=== PATIENT | male | born 1960 | race Caucasian/White ===

== ENCOUNTER 2018-10-12 08:17 | Emergency (ER) | payer BC ==
--- NOTE | 2018-10-12 10:45 | ED ---
Lower Extremity - HPI Summary HPI Summary: 58 yo WM p/w right calf pain x 2-3 days associated with right ankle swelling and mild right knee pain. Denies injury or overuse, sits at computer alot. - History of Current Complaint Chief Complaint: UCLowerExtremity Stated Complaint: PAIN SWELLING CALF OF LEG Time Seen by Provider: 10/12/18 08:28 Hx Obtained From: Patient Onset of Pain: Days Onset/Duration: Days Severity Initially: Moderate Severity Currently: Moderate Pain Intensity: 1 Timing: Constant Character Of Pain: Dull, Aching Aggravating Factor(s): Standing, Ambulation Alleviating Factor(s): Nothing Able to Bear Weight: Yes - Allergies/Home Medications Allergies/Adverse Reactions: Allergies Allergy/AdvReac Type Severity Reaction Status Date / Time doxycycline Allergy Rash Verified 10/12/18 08:28 tetracycline Allergy anaph Verified 10/12/18 08:28 PMH/Surg Hx/FS Hx/Imm Hx Previously Healthy: Yes Endocrine/Hematology History: Reports: Hx Thyroid Disease - not on meds Denies: Hx Diabetes, Hx Anemia GI History: Denies: Hx Jaundice Infectious Disease History: No Infectious Disease History: Denies: Traveled Outside the [place] in Last 30 Days - Social History Alcohol Use: Occasionally Substance Use Type: Reports: None Smoking Status (MU): Never Smoked Tobacco Have You Smoked in the Last Year: No Review of Systems Constitutional: Negative Positive: Fever Eyes: Negative ENT: Negative Cardiovascular: Negative Respiratory: Negative Gastrointestinal: Negative Genitourinary: Negative Musculoskeletal: Negative Skin: Negative Neurological: Negative Psychological: Normal All Other Systems Reviewed And Are Negative: Yes Physical Exam - Summary Physical Exam Summary: Vital Signs Reviewed: Yes Skin: Positive: Warm Head/Face: Positive: Normal Head/Face Inspection Eyes: Positive: Normal ENT: Positive: Normal ENT inspection Neck: Positive: Supple Respiratory/Lung Sounds: Positive: Clear to Auscultation Cardiovascular: Positive: Normal, RRR, S1, S2 Abdomen Description: Positive: Nontender Musculoskeletal: Positive: right calf tenderness- right upper medial- NVI, ROM in right knee and ankle intact, Neurological: Positive: Normal Psychiatric: Positive: Normal, Affect/Mood Appropriate Vital Signs On Initial Exam: Initial Vitals Temp Pulse Resp BP Pulse Ox 36.6 C 58 16 126/91 98 10/12/18 08:24 10/12/18 08:24 10/12/18 08:24 10/12/18 08:24 10/12/18 08:24 Diagnostics - Vital Signs Vital Signs Temp Pulse Resp BP Pulse Ox 10/12/18 08:24 36.6 C 58 16 126/91 98 - Laboratory Lab Statement: Any lab studies that have been ordered have been reviewed, and results considered in the medical decision making process. Lower Extremity Course/Dx - Course Assessment/Plan: RLE doppler neg for DVT but LARGE FLUID COLLECTION EXTENDING FROM THE POPLITEAL FOSSA INTO THE CALF POSSIBLY REPRESNTING A PARTIALLY RUPTURED JOSE'S CYST. IF PAIN, REDNESS AND SWELLING INCREASES TO A POINT WHERE IT IS EXTREMELY PAINFUL AND HARD- ADVISED TO GO TO ER- GO TO ORTHO FOR EVALUATION AND F/U - Diagnoses Provider Diagnoses: Ruptured Bakers cyst Discharge - Sign-Out/Discharge Documenting (check all that apply): Patient Departure All imaging exams completed and their final reports reviewed: Yes - Discharge Plan Condition: Stable Disposition: HOME Patient Education Materials: Bakers Cyst (ED) Referrals: Larry Luo DO [Primary Care Provider] - Additional Instructions: follow up with PCP or ortho if calf tenderness swelling becomes worse- red, tender and hot as we discussed - Billing Disposition and Condition Condition: STABLE Disposition: Home
[2018-10-12 11:13] VITALS: BP 136/89
== END 2018-10-12 11:06 | disposition home or self-care (01) ==
LOC: UCEAST 08:17
DX: M66.0 Rupture of popliteal cyst (principal); Z88.1 Allergy status to other antibiotic agents
CPT/HCPCS: 99201; G0463

== ENCOUNTER 2019-12-16 14:04 | Emergency (ER) | payer BC ==
--- OUTSIDE RECORDS SUMMARY | 2019-12-16 14:24 | XMS REPORT | Continuity of Care Document ---
:1960 External Reference #:[id number] Author Name Jules Garzon M.D. 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 Medicine Problems Description No Information Available Social History Type Date Description Comments Sex Unknown Tobacco Use Start: Unknown End: former occasional smoker last time he smoked was Unknown in Smoking Status Reviewed: 12/06/19 former occasional smoker last time he smoked was in Allergies, Adverse Reactions, Alerts Active Allergies Reaction Severity Comments Date NKDA 08/15/2019 Inactive Allergies Doxycycline facial numbness 11/30/2018 Tetracycline unknown 11/30/2018 Medications Active Medications SIG Qnty Indications Ordering Provider Date Triamcinolone Acetonide Larry Luo DO Noah 0.1% Cream Humira Pen Inject 40 MG Unknown 40mg/0.4ML PNKT Under The Skin Every Other Week Immunizations CPT Code Status Date Vaccine Reaction Lot # [id number] Given 09/05/2019 Influenza Virus Vaccine, Patient denies ever [id number] Quadrivalent, Split, having a serious Preservative Free reaction to eggs or egg products, ever having a serious reaction or other problem after getting influenza vaccination, ever being diagnosed with Zacoupi-Rsyoi-Lsawzdwg , possibility of being , fever or moderate/severe illness today, allergy to latex. Patient verifies "I have read or had explained to me the information about influenza and influenza vaccine. I have had a chance to ask questions that were answered to my satisfaction. I believe I understand the benefits and risks of influenza vaccine and ask that the vaccine be given to me." Patient tolerated injection w/ no immediate adverse effect. [id number] Given 09/05/2019 Pneumococcal Conjugate Pt reports no [id number] Vaccine 13 Valent For immediate adverse Intramuscular Use effects Vital Signs Date Vital Result Comment 12/06/2019 8:56am Height 72 inches 6'0" Weight 243.00 lb Heart Rate 52 /min BP Systolic Sitting 124 mmHg BP Diastolic Sitting 78 mmHg Body Temperature 96.5 F Pain Level 0 O2 % BldC Oximetry 97 % BMI (Body Mass Index) 33.0 kg/m2 09/05/2019 8:52am Height 72 inches 6'0" Weight 242.00 lb Heart Rate 54 /min BP Systolic Sitting 115 mmHg BP Diastolic Sitting 77 mmHg Respiratory Rate 16 /min Body Temperature 97.0 F O2 % BldC Oximetry 95 % BMI (Body Mass Index) 32.8 kg/m2 Results Test Acquired Date Facility Test Result H/L Range Note Comp Metabolic 12/04[facility] Sodium 138 mmol/L Normal 135-145 1 Panel [address] [place] [address] [phone] Potassium 3.9 mmol/L Normal 3.5-5.0 Chloride 106 mmol/L Normal 101-111 Co2 Carbon Dioxide 24 mmol/L Normal 22-32 Anion Gap 8 mmol/L Normal 2-11 Glucose 77 mg/dL Normal 70-100 Blood Urea Nitrogen 11 mg/dL Normal 6-24 Creatinine 0.99 mg/dL Normal 0.67-1.17 BUN/Creatinine Ratio 11.1 Normal 8-20 Calcium 9.3 mg/dL Normal 8.6-10.3 Total Protein 6.9 g/dL Normal 6.4-8.9 Albumin 4.5 g/dL Normal 3.2-5.2 Globulin 2.4 g/dL Normal 2-4 Albumin/Globulin Ratio 1.9 Normal 1-3 Total Bilirubin 1.10 mg/dL High 0.2-1.0 Alkaline Phosphatase 83 U/L Normal 34-104 Alt 45 U/L Normal 7-52 Ast 33 U/L Normal 13-39 Egfr Non- 76.9 >60 Egfr 93.0 >60 2 Lipid Profile 12/04/2019 [facility] Triglycerides 148 mg/dL 3 (Trig/Chol/HDL) [address] [place] [address] [phone] Cholesterol 174 mg/dL 4 HDL Cholesterol 34.5 mg/dL 5 LDL Cholesterol 110 mg/dL 6 Laboratory test 12/04/2019 [facility] C Reactive 2.16 mg/L Normal <8.01 [address] [place] [address] [phone] TSH (Thyroid Stim Horm) 1.97 mcIU/mL Normal 0.34-5.60 8 Vitamin D Total 25(Oh) 24.4 ng/mL Normal 20-50 9 CBC Auto 12/04/2019 [facility] White Blood 5.0 10^3/uL Normal 3.5-10.[address] [place] [address] [phone] Red Blood Count 5.24 10^6/uL Normal 4.18-5.48 Hemoglobin 16.3 g/dL Normal 14.0-18.0 Hematocrit 47 % Normal 42-52 Mean Corpuscular Volume 89 fL Normal 80-94 Mean Corpuscular Hemoglobin 31 pg Normal 27-31 Mean Corpuscular HGB Conc 35 g/dL Normal 31-36 Red Cell Distribution Width 13 % Normal 10-15 Platelet Count 165 10^3/uL Normal 150-450 Mean Platelet Volume 9.3 fL Normal 7.4-10.4 Abs Neutrophils 2.9 10^3/uL Normal 1.5-7.7 Abs Lymphocytes 1.1 10^3/uL Normal 1.0-4.8 Abs Monocytes 0.7 10^3/uL Normal 0-0.8 Abs Eosinophils 0.4 10^3/uL Normal 0-0.6 Abs Basophils 0.0 10^3/uL Normal 0-0.2 Abs Nucleated RBC 0.0 10^3/uL Granulocyte % 57.3 % Lymphocyte % 21.7 % Monocyte % 13.1 % Eosinophil % 7.1 % Basophil % 0.8 % Nucleated Red Blood Cells % 0.8 Laboratory test 12/04/2019 [facility] Erythrocyte Sed 5 mm/Hr Normal 0-[address] [place] [address] [phone] Laboratory test 08/15/2019 [facility] Rheumatoid < 10 Normal < 15 [address] Factor IU/[place] [address] [phone] Cyclic Citrullinated Pep Igg 65.2 U Abnormal 11 Hla B27 08/15/2019 [facility] Hla B27 Negative [address] [place] [address] [phone] Hla B27 Interp See Comment 13 Laboratory test 08/15/2019 [facility] Uric Acid 6.6 mg/dL Normal 4.4-7.6 [address] [place] [address] [phone] Celiac Hla 08/15/2019 [facility] Hla-Dqa1 SEE BELOW [address] [place] [address] [phone] Hla-DQB1 SEE BELOW 16 Celiac Gene Pairs Present? Equivocal Celiac Gene Interpretation See Comment 17 CBC Auto 08/15/2019 [facility] White Blood 5.9 10^3/uL Normal 3.5-10.[address] [place] [address] [phone] Red Blood Count 5.09 10^6/uL Normal 4.18-5.48 Hemoglobin 15.7 g/dL Normal 14.0-18.0 Hematocrit 45 % Normal 42-52 Mean Corpuscular Volume 89 fL Normal 80-94 Mean Corpuscular Hemoglobin 31 pg Normal 27-31 Mean Corpuscular HGB Conc 35 g/dL Normal 31-36 Red Cell Distribution Width 14 % Normal 10-15 Platelet Count 170 10^3/uL Normal 150-450 Mean Platelet Volume 9.2 fL Normal 7.4-10.4 Abs Neutrophils 3.9 10^3/uL Normal 1.5-7.7 Abs Lymphocytes 1.2 10^3/uL Normal 1.0-4.8 Abs Monocytes 0.5 10^3/uL Normal 0-0.8 Abs Eosinophils 0.2 10^3/uL Normal 0-0.6 Abs Basophils 0.0 10^3/uL Normal 0-0.2 Abs Nucleated RBC 0.0 10^3/uL Granulocyte % 66.7 % Lymphocyte % 20.8 % Monocyte % 9.1 % Eosinophil % 2.7 % Basophil % 0.7 % Nucleated Red Blood Cells % 0.1 Comp Metabolic 08/15/2019 [facility] Sodium 139 mmol/L Normal 135-[address] [place] [address] [phone] Potassium 4.2 mmol/L Normal 3.5-5.0 Chloride 105 mmol/L Normal 101-111 Co2 Carbon Dioxide 29 mmol/L Normal 22-32 Anion Gap 5 mmol/L Normal 2-11 Glucose 82 mg/dL Normal 70-100 Blood Urea Nitrogen 11 mg/dL Normal 6-24 Creatinine 1.11 mg/dL Normal 0.67-1.17 BUN/Creatinine Ratio 9.9 Normal 8-20 Calcium 9.6 mg/dL Normal 8.6-10.3 Total Protein 6.9 g/dL Normal 6.4-8.9 Albumin 4.5 g/dL Normal 3.2-5.2 Globulin 2.4 g/dL Normal 2-4 Albumin/Globulin Ratio 1.9 Normal 1-3 Total Bilirubin 0.70 mg/dL Normal 0.2-1.0 Alkaline Phosphatase 82 U/L Normal 34-104 Alt 38 U/L Normal 7-52 Ast 28 U/L Normal 13-39 Egfr Non- 67.3 >60 Egfr 81.5 >60 18 Laboratory test 08/15/2019 [facility] Erythrocyte Sed 12 mm/Hr Normal 0-19 [address] [place] [address] [phone] C Reactive Protein 4.70 mg/L Normal <8.01 20 Anca AB Ser If 08/15/2019 [facility] C-Anca Negative Negative [address] [place] [address] [phone] P-Anca Negative Negative 21 1 FASTING 2 Because ethnic data is not always readily available, this report includes an eGFR for both -Americans and non- Americans. The National Kidney Disease Education Program (NKDEP) does not endorse the use of the MDRD equation for patients that are not between the ages of 18 and 70, are , have extremes of body size, muscle mass, or nutritional status, or are non- or non-. According to the National Kidney Foundation, irrespective of diagnosis, the stage of the disease is based on the level of kidney function: Stage Description GFR(mL/min/1.73 m(2)) 1 Kidney damage with normal or decreased GFR 90 2 Kidney damage with mild decrease in GFR 60-89 3 Moderate decrease in GFR 30-59 4 Severe decrease in GFR 15-29 5 Kidney failure <15 (or dialysis) 3 Desirable: <150 Borderline High: 150-199 High: 200-499 Very High: >500 4 Desirable: <200 Borderline High: 200-239 High: >239 5 Low: <40 Desirable: 40-60 High: >60 6 Desirable: <100 Near Optimal: 100-129 Borderline High: 130-159 High: 160-189 Very High: >189 7 FASTING 8 FASTING 9 Total 25-Hydroxyvitamin D2 and D3 (25-OH-VitD) <10 ng/mL (severe deficiency) 10-19 ng/mL (mild to moderate deficiency) 20-50 ng/mL (optimum levels) 51-80 ng/mL (increased risk of hypercalciuria) >80 ng/mL (toxicity possible) 10 Please check labs this week and xrays this week 11 Interpretation: Strong Positive (>=60.0) REFERENCE VALUE <20.0 (Negative) Test Performed by: [facility] [address] [place] [address] Carrot Harvester: Rubin Miller M.D. Ph.D.; CLIA# [id number] 12 REFERENCE VALUE Not Applicable 13 RESULT: HLA-B27 antigen was not detected. ADDITIONAL INFORMATION Method: Flow Cytometry Test Performed by: [facility] - [address] [address] Carrot Harvester: Rubin Miller M.D. Ph.D.; CLIA# [id number] 14 Please check labs this week and xrays this week 15 RESULT: 02:01,02:01 REFERENCE VALUE Not Applicable 16 RESULT: 02:02,03:03 DQ Serologic Equivalent: 2,9 REFERENCE VALUE Not Applicable 17 While the patient lacks the gene pairs usually seen in celiac disease, there are rare exceptions in which celiac disease can occur with only one half of the gene pair (1% of all celiac) making celiac disease very unlikely. However, these genes can also be present in the normal population. ADDITIONAL INFORMATION Method: Molecular typing of HLA antigens performed using reverse SSOP and/or SSP methods, reported as serological equivalents and low to medium resolution molecular values. Test Performed by: [place] [address] Carrot Harvester: Rubin Miller M.D. Ph.D.; IA# [id number] 18 Because ethnic data is not always readily available, this report includes an eGFR for both -Americans and non- Americans. The National Kidney Disease Education Program (NKDEP) does not endorse the use of the MDRD equation for patients that are not between the ages of 18 and 70, are , have extremes of body size, muscle mass, or nutritional status, or are non- or non-. According to the National Kidney Foundation, irrespective of diagnosis, the stage of the disease is based on the level of kidney function: Stage Description GFR(mL/min/1.73 m(2)) 1 Kidney damage with normal or decreased GFR 90 2 Kidney damage with mild decrease in GFR 60-89 3 Moderate decrease in GFR 30-59 4 Severe decrease in GFR 15-29 5 Kidney failure <15 (or dialysis) 19 Please check labs this week and xrays this week 20 Please check labs this week and xrays this week 21 Negative for cANCA and pANCA patterns by immunofluorescence. ADDITIONAL INFORMATION This test was developed and its performance characteristics determined by [facility] in a manner consistent with CLIA requirements. This test has not been cleared or approved by the U.S. Food and Drug Administration. Test Performed by: [facility] [address] [place] [address] Carrot Harvester: Rubin Miller M.D. 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 Office Visit 10/30/2019 4:00p [facility] Dermat[facility] Mc Fowler, L40.0 Psoriasis MD vulgaris Office Visit 09/07/2019 10:20a [facility] Dermatology Mc Fowler L40.0 Psoriasis MD vulgaris Office Visit 09/05/2019 8:40a Rheumatology Jules Garzon M06.09 Rhe[facility] arthritis w/o rheumatoid factor, multiple sites Z79.899 Other physician practice coordinator (current) drug therapy M19.049 Primary osteoarthritis, unspecified hand M25.551 Pain in right hip Z23 Encounter for immunization M06.09 Rheumatoid arthritis w/o rheumatoid factor, multiple sites Office Visit 08/15/2019 Rheumatology Jules Louise6.4 Inflammatory 11:00a [facility] M.D. polyarthropathy L40.9 Psoriasis, unspecified M25.551 Pain in right hip M25.561 Pain in right knee Z79.899 Other fdc (current) drug therapy Assessments Date Code Description Provider 12/06/2019 M06.09 Rheumatoid arthritis without rheumatoid Jules Garzon M.D. factor, multiple sites 12/06/2019 L40.0 Psoriasis vulgaris Jules Garzon M.D. 12/06/2019 Z79.899 Other physician practice coordinator (current) drug therapy Jules Garzon M.D. 12/06/2019 M54.2 Cervicalgia Jules Garzon M.D. 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 10/30/2019 L40.0 Psoriasis vulgaris Mc Fowler MD 09/29/2019 L40.0 Psoriasis vulgaris Nurse Visit Derm 09/07/2019 L40.0 Psoriasis vulgaris Mc Fowler MD 09/05/2019 M06.09 Rheumatoid arthritis without rheumatoid Jules Garzon M.D. factor, multiple sites 09/05/2019 Z79.899 Other fdc (current) drug therapy Jules Garzon M.D. 09/05/2019 M19.049 Primary osteoarthritis, unspecified hand Jules Garzon M.D. 09/05/2019 M25.551 Pain in right hip Jules Garzon M.D. 09/05/2019 Z23 Encounter for immunization Jules Garzon M.D. 09/05/2019 M06.09 Rheumatoid arthritis w/o rheumatoid factor, Jules Garzon M.D. multiple sites 08/15/2019 M06.4 Inflammatory polyarthropathy Jules Garzon M.D. 08/15/2019 L40.9 Psoriasis, unspecified Jules Garzon M.D. 08/15/2019 M25.551 Pain in right hip Jules Garzon M.D. 08/15/2019 M25.561 Pain in right knee Jules Garzon M.D. 08/15/2019 Z79.899 Other physician practice coordinator (current) drug therapy Jules Garzon M.D. Plan of Treatment Future Appointment(s):05/06/2020 9:00 am - Jules Garzon M.D. at [facility]12/06/2019 - Jules Garzon M.D.M06.09 Rheumatoid arthritis without rheumatoid factor, multiple sitesFollow up:Follow up in 3-5 months or sooner if cghzxsF25.0 Psoriasis qmqdtraoA31.899 Other physician practice coordinator (current) drug jghhntgX94.2 InoecobhmgvP85.23 Arthritis due to Lyme disease Functional Status Description No Information Available Mental Status Description No Information Available Referrals Description No Information Available
[2019-12-16 14:52] LABS: ABS Eosinophils 0.4 10^3/ul (0-0.6); ABS Lymphocytes 1.6 10^3/ul (1.0-4.8); ABS Monocytes 0.9 10^3/ul (0-0.8); Eosinophil % 4.8 %; Hematocrit 48 % (42-52); Hemoglobin 17.1 g/dL (14.0-18.0); Mean Corpuscular HGB Conc 36 g/dL (31-36); Mean Corpuscular Hemoglobin 32 pg (27-31); Mean Corpuscular Volume 89 fL (80-94); Mean Platelet Volume 9.7 fL (7.4-10.4); Nucleated Red Blood Cells % 0.1; Platelet Count 165 10^3/uL (150-450); Red Blood Count 5.42 10^6 /uL (4.18-5.48); Red Cell Distribution Width 13 % (10-15); White Blood Count 8.9 10^3/uL (3.5-10.8)
[2019-12-16 15:01] LABS: Albumin 4.5 g/dL (3.2-5.2); Albumin/Globulin Ratio 1.8 (1-3); BUN/Creatinine Ratio 10.2 (8-20); C Reactive Protein 6.74 mg/L (<8.01); Calcium 9.6 mg/dL (8.6-10.3); EGFR African American 84.1 (>60); EGFR Non-African American 69.5 (>60); Globulin 2.5 g/dL (2-4); Potassium 4.3 mmol/L (3.5-5.0); Total Bilirubin 0.7 mg/dL (0.2-1.0)
--- NOTE | 2019-12-16 15:56 | ED ---
Abdominal Pain/Male - HPI Summary HPI Summary: This patient is a 59 y/o male presenting to [facility] c/o upper abdominal pain. Patient reports he had severe abdominal pain last night that woke him up from sleep. Patient notes he was diaphoretic and nauseous with this episode of abd pain. He describes his abdominal pain resolved after 1 hour spontaneously and then he went back to sleep. Patient denies eating a heavy meal prior to sleeping last night. Patient states he had a similar episode occur 1 week ago. Currently he reports "almost no abdominal pain", rating it 0.5/10 in severity. Denies any fever, chills, chest pain, SOB. PMHx: lyme disease in 2018, psoriasis (was on Methotrexate), rheumatoid arthritis. Patient currently on Humira and has been on it since mid September 2019. Home Medications Medication Instructions Recorded Confirmed Type Multivitamin [Multivitamins] 07/18/14 07/18/14 History Hydrocortisone/Aloe/Vit.e/A/D [Eq 07/19/14 07/19/14 History Anti-Itch Plus 1% Cream] - History of Current Complaint Chief Complaint: EDAbdPain Stated Complaint: UPPER ABD PAIN PER PT Time Seen by Provider: 12/16/19 15:47 Hx Obtained From: Patient Onset/Duration: Sudden Onset Timing: Intermittent, Lasting Hours - 1 Severity Initially: Severe Severity Currently: None Pain Intensity: 1 Pain Scale Used: 0-10 Numeric Location: Epigastric Radiates: No Aggravating Factor(s): Nothing Alleviating Factor(s): Nothing Associated Signs And Symptoms: Positive: Diaphoresis, Nausea. Negative: Fever, Chest Pain, Vomiting - Allergies/Home Medications Allergies/Adverse Reactions: Allergies Allergy/AdvReac Type Severity Reaction Status Date / Time tetracycline Allergy anaph Verified 12/16/19 14:09 Home Medications: Home Medications Multivitamin [Multivitamins] 07/18/14 [History Confirmed 07/18/14] Hydrocortisone/Aloe/Vit.e/A/D [Eq Anti-Itch Plus 1% Cream] 07/19/14 [History Confirmed 07/19/14] PMH/Surg Hx/FS Hx/Imm Hx Previously Healthy: No - Lyme disease, psoriasis Endocrine/Hematology History: Reports: Hx Thyroid Disease - not on meds Denies: Hx Diabetes, Hx Anemia GI History: Denies: Hx Jaundice Musculoskeletal History: Reports: Hx Rheumatoid Arthritis Infectious Disease History: No Infectious Disease History: Denies: Traveled Outside the [place] in Last 30 Days - Family History Family History: Mother with diverticulosis - Social History Alcohol Use: Occasionally Substance Use Type: Reports: None Smoking Status (MU): Never Smoked Tobacco Have You Smoked in the Last Year: No Review of Systems Positive: Skin Diaphoresis. Negative: Fever, Chills Negative: Chest Pain Negative: Shortness Of Breath Positive: Abdominal Pain, Nausea Musculoskeletal: Negative Neurological/Mental Status: Negative All Other Systems Reviewed And Are Negative: Yes Physical Exam - Summary Physical Exam Summary: VITAL SIGNS: Reviewed. GENERAL: Patient is a well-developed and nourished male who is lying comfortable in the stretcher. Patient is not in any acute respiratory distress. HEAD AND FACE: Normocephalic and atraumatic. EYES: PERRLA, EOMI x 2, No injected conjunctiva. EARS: Hearing grossly intact. Ear canals and tympanic membranes are WNL. MOUTH: Oropharynx within normal limits. NECK: Supple, trachea is midline, no adenopathy, no JVD. CHEST: Symmetric, no tenderness at palpation. LUNGS: Clear to auscultation bilaterally. No wheezing or crackles. CVS: RRR, S1 and S2 present, no murmurs or gallops appreciated. ABDOMEN: Soft, non-tender. No signs of distention. Positive bowel sounds. No rebound, no guarding, and no masses palpated. No abdominal bruit or pulsations. EXTREMITIES: FROM in all major joints, no edema, no cyanosis or clubbing. NEURO: Alert and oriented x 3. No acute neurological deficits. Speech is normal. SKIN: Dry and warm. Triage Information Reviewed: Yes Vital Signs On Initial Exam: Initial Vitals Temp Pulse Resp BP Pulse Ox 98.8 F 68 16 123/98 96 12/16/19 14:05 12/16/19 14:05 12/16/19 14:05 12/16/19 14:05 12/16/19 14:05 Vital Signs Reviewed: Yes Procedures - Sedation Patient Received Moderate/Deep Sedation with Procedure: No Diagnostics - Vital Signs Vital Signs Temp Pulse Resp BP Pulse Ox 12/16/19 14:05 98.8 F 68 16 123/98 96 - Laboratory Lab Results: Lab Results 12/16/19 12/16/19 12/16/19 Range/Units 14:32 14:32 14:32 WBC 8.9 (3.5-10.8) 10^3/uL RBC 5.42 (4.18-5.48) 10^6 /uL Hgb 17.1 (14.0-18.0) g/dL Hct 48 (42-52) % MCV 89 (80-94) fL MCH 32 H (27-31) pg MCHC 36 (31-36) g/dL RDW 13 (10-15) % Plt Count 165 (150-450) 10^3/uL MPV 9.7 (7.4-10.4) fL Neut % (Auto) 67.2 % Lymph % (Auto) 18.0 % [place] % (Auto) 9.7 % Eos % (Auto) 4.8 % Baso % (Auto) 0.3 % Absolute Neuts (auto) 6.0 (1.5-7.7) 10^3/ul Absolute Lymphs (auto) 1.6 (1.0-4.8) 10^3/ul Absolute Monos (auto) 0.9 H (0-0.8) 10^3/ul Absolute Eos (auto) 0.4 (0-0.6) 10^3/ul Absolute Basos (auto) 0.0 (0-0.2) 10^3/ul Absolute Nucleated RBC 0.0 10^3/ul Nucleated RBC % 0.1 Sodium 138 (135-145) mmol/L Potassium 4.3 (3.5-5.0) mmol/L Chloride 104 (101-111) mmol/L Carbon Dioxide 27 (22-32) mmol/L Anion Gap 7 (2-11) mmol/L BUN 11 (6-24) mg/dL Creatinine 1.08 (0.67-1.17) mg/dL Est GFR ( Amer) 84.1 (>60) Est GFR (Non-Af Amer) 69.5 (>60) BUN/Creatinine Ratio 10.2 (8-20) Glucose 83 (70-100) mg/dL Lactic Acid 1.4 (0.5-2.0) mmol/L Calcium 9.6 (8.6-10.3) mg/dL Total Bilirubin 0.70 (0.2-1.0) mg/dL AST 26 (13-39) U/L ALT 38 (7-52) U/L Alkaline Phosphatase 89 (34-104) U/L C-Reactive Protein 6.74 (<8.01) mg/L Total Protein 7.0 (6.4-8.9) g/dL Albumin 4.5 (3.2-5.2) g/dL Globulin 2.5 (2-4) g/dL Albumin/Globulin Ratio 1.8 (1-3) Amylase 55 (29-103) U/L Lipase 260 H (11.0-82.0) U/L Result Diagrams: 12/16/19 14:32 12/16/19 14:32 Lab Statement: Any lab studies that have been ordered have been reviewed, and results considered in the medical decision making process. - CT Abdomen/Pelvis CT CT Interpretation Completed By: Radiologist Summary of CT Findings: IMPRESSION: 1. Cholelithiasis without CT apparent acute inflammatory change or evidence of pathologic biliary obstruction. 2. Likely hepatic steatosis. 3. The appendix is note discretely visualized but there are no focal inflammatory changes at the base of the cecum that would be consistent with acute appendicitis. Dr. Coates has reviewed this report. Abdominal Pain Male Course/Dx - Course Assessment/Plan: This patient is a 59 y/o male presenting to [facility] c/o upper abdominal pain. Patient reports he had severe abdominal pain last night that woke him up from sleep. Patient notes he was diaphoretic and nauseous with this episode of abd pain. He describes his abdominal pain resolved after 1 hour spontaneously and then he went back to sleep. Patient denies eating a heavy meal prior to sleeping last night. Patient states he had a similar episode that occurred 1 week ago. Currently he reports "almost no abdominal pain", rating it 0.5/10 in severity. Denies any fever, chills, chest pain, SOB. PMHx: lyme disease in 2018, psoriasis (was on Methotrexate), rheumatoid arthritis. Patient currently on Humira and has been on it since mid September 2019. Blood test results without any significant abnormality except for lipase of 260. Urinalysis is negative for UTI. The patient continues to be asymptomatic. The patient is having abdominal pain. Abdomen/pelvis CT IMPRESSION: 1. Cholelithiasis without CT apparent acute inflammatory change or evidence of pathologicbiliary obstruction. 2. Likely hepatic steatosis. 3. The appendix is not discretely visualized but there are no focal inflammatory changes at the base of the cecum that would be consistent with acute appendicitis. In the ED course the patient reports no pain, no nausea, no vomiting, no diarrhea. Therefore the patient will be discharged home with follow-up from surgery and his primary care physician. The patient is hemodynamically stable, alert and oriented 3. The patient was recommended to return to the emergency department if he develops any other symptoms. He understands and agrees. - Diagnoses Provider Diagnoses: Cholelithiasis Discharge ED - Sign-Out/Discharge Documenting (check all that apply): Patient Departure - Discharge home - Discharge Plan Condition: Stable Disposition: HOME Patient Education Materials: Gallstones (ED) Referrals: Rojelio Sutherland MD [Medical Doctor] - Larry Luo DO [Primary Care Provider] - Additional Instructions: FOLLOW UP WITH YOUR PRIMARY CARE PROVIDER IN 2-3 DAYS. ALSO FOLLOW UP WITH SURGERY. RETURN TO THE EMERGENCY DEPARTMENT FOR ANY WORSENING OR NEW SYMPTOMS. - Billing Disposition and Condition Condition: STABLE Disposition: Home - Attestation Statements Document Initiated by Jatinder: Yes Documenting Scribe: Marjorie Renae Provider For Whom Jatinder is Documenting (Include Credential): Luke Coates MD Scribe Attestation: Marjorie Carlisle scribed for Luke Coates MD on 12/16/19 at 2151. Scribe Documentation Reviewed: Yes Provider Attestation: The documentation as recorded by the Marjorie craven accurately reflects the service I personally performed and the decisions made by me, Luke Coates MD Status of Scribe Document: Viewed
[2019-12-16] MEDS ORDERED: Iohexol 300* (CONTRAST) 10 ML SDV IV ONE (16:27)
[2019-12-16 16:37] LABS: Urine Appearance Clear; Urine Bilirubin Negative (Negative); Urine Blood Negative (Negative); Urine Color Yellow; Urine Glucose Negative (Negative); Urine Ketones Negative (Negative); Urine Nitrite Negative (Negative); Urine Protein Negative (Negative); Urine Specific Gravity 1.008 (1.010-1.030); Urine Urobilinogen Negative (Negative)
[2019-12-16 20:39] VITALS: BP 140/94
== END 2019-12-16 20:38 | disposition home or self-care (01) ==
LOC: ED 14:04
DX: K80.20 Calculus of gallbladder without cholecystitis without obstruction (principal); R10.9 Unspecified abdominal pain; R11.0 Nausea; Z88.1 Allergy status to other antibiotic agents
CPT/HCPCS: 36415; 74177; 80053; 81003; 82150; 83605; 83690; 84484; 85025; 86140; 93005; 99282; Q9967